=== PATIENT | female | born 1990 | race Caucasian/White ===

== ENCOUNTER 2017-05-03 11:39 | Emergency (ER) | payer OTHER ==
[~2017-05-03] VITALS: Ht 152.4 cm; Wt 73.5 kg
[~2017-05-03 11:39] MED LIST: ALBUTEROL0.09 MG/A2 IH; ANAPROX DS550 MG PO; HYDROCODONE BIT1 T11 PO; MEDROL DOSEPAK4 MG PO
[2017-05-03] MEDS ORDERED: KEFLEX500 M1 PO (11:57)
[2017-05-03] MEDS ORDERED: NAPROSYN500 MG PO (11:57)
== END 2017-05-03 13:22 | disposition left against medical advice (07) ==
LOC: ED 11:39
DX: S61.411A Laceration without foreign body of right hand, initial encounter (principal); R03.0 Elevated blood-pressure reading, without diagnosis of hypertension; Z23 Encounter for immunization; F17.200 Nicotine dependence, unspecified, uncomplicated; Z88.2 Allergy status to sulfonamides; W10.9XXA Fall (on) (from) unspecified stairs and steps, initial encounter; Y93.89 Activity, other specified; Y92.89 Other specified places as the place of occurrence of the external cause; Y99.8 Other external cause status